=== PATIENT | male | born 1985 | race Caucasian/White ===

== ENCOUNTER → 2017-02-03 | Outpatient (CLI) | payer OTHER | LOC: HEDF 13:26 | DX: S01.01XA Laceration without foreign body of scalp, initial encounter (principal); Y93.55 Activity, bike riding; M79.641 Pain in right hand; V13.9XXA Unspecified pedal cyclist injured in collision with car, pick-up truck or van in traffic accident, initial encounter; Y92.488 Other paved roadways as the place of occurrence of the external cause; Y99.8 Other external cause status | CPT/HCPCS: A0431; A0436 ==

== ENCOUNTER 2017-06-09 03:19 | Emergency (ER) | payer OTHER ==
[~2017-06-09] VITALS: Ht 167.6 cm; Wt 52.0 kg
[2017-06-09 03:25] VITALS: BP 115/83; PULSE 89; RESP 16; TEMP 98.5; O2SAT 97
[2017-06-09 04:01] LABS: AUTOMATED NEUTROPHIL # 6.2 TH/MM3 (1.8-7.7); BASOPHIL # 0.1 TH/MM3 (0-0.2); BASOPHIL % 0.8 % (0.0-2.0); EOSINOPHIL # 0.3 TH/MM3 (0-0.4); EOSINOPHIL % 3.1 % (0.0-4.0); HEMATOCRIT 38.8 % (39.0-51.0); LYMPH % 20.6 % (9.0-44.0); LYMPHOCYTE # 1.9 TH/MM3 (1.0-4.8); MEAN CELL VOLUME 92.8 FL (80.0-100.0); MEAN CORPUSCULAR HEMOGLOBIN 32.3 PG (27.0-34.0); MEAN CORPUSCULAR HGB CONC 34.7 % (32.0-36.0); NEUT % 68.5 % (16.0-70.0); PLATELET COUNT 256 TH/MM3 (150-450); RED BLOOD COUNT 4.17 MIL/MM3 (4.50-5.90); RED CELL DISTRIBUTION WIDTH 15.8 % (11.6-17.2); WHITE BLOOD COUNT 9.1 TH/MM3 (4.0-11.0)
[2017-06-09 04:02] LABS: HEMO FLAGS AUTO DIFF
--- NOTE | 2017-06-09 04:02 | RADRPT ---
EXAM DATE/TIME: 06/09/2017 03:42 [place] COMPARISON: No previous studies available for comparison. INDICATIONS : Chest pain. MEDICAL HISTORY : None. SURGICAL HISTORY : None. ENCOUNTER: Initial ACUITY: 1 day PAIN SCORE: 4/10 LOCATION: chest substernal. FINDINGS: Portable AP view of the chest demonstrates a normal-sized cardiac silhouette. No effusion, consolidat ion, or pneumothorax is visualized. The bones and soft tissues demonstrate no acute abnormality. CONCLUSION: No acute cardiopulmonary abnormality is identified. Allen Cobos MD on June 09, 2017 at 4:00 Board Certified Radiologist. This report was verified electronically.
[2017-06-09 04:24] LABS: ANION GAP 9 MEQ/L (5-15); BICARBONATE 24.8 MEQ/L (21.0-32.0); BLOOD UREA NITROGEN 24 MG/DL (7-18); CHLORIDE 105 MEQ/L (98-107); CREATINE KINASE 125 U/L (39-308); GLOMERULAR FILTRATION RATE 94 ML/MIN (>89); POTASSIUM 4.3 MEQ/L (3.5-5.1); SODIUM (NA) 139 MEQ/L (136-145)
[2017-06-09 04:36] LABS: CKMB 0.7 NG/ML (0.5-3.6)
[2017-06-09 04:49] VITALS: RESP 16; O2SAT 99
[2017-06-09] MEDS ORDERED: BACT800T5 PO (05:38)
--- NOTE | 2017-06-09 05:38 | PD ---
HPI Chief Complaint: Chest Pain Time Seen by Provider: 05:11 Travel History International Travel<30 days: No Contact w/Intl Traveler<30days: No Traveled to known affect area: No History of Present Illness HPI The patient is a 31-year-old male who presents to the emergency department for multiple complaints. The patient complains of bilateral chest wall pain that is worse with inspiration. The patient does note a dry nonproductive cough, denies any shortness of breath with a pleuritic chest pain. The patient also complains of multiple abscesses to the groin, buttocks, and left axilla. The patient states he has a history of abscesses in the past and has been on medication for last 2 weeks, however, cannot recall the name of the medication. The patient denies any fever, chills, or sweats. The patient states he is currently going from [place] to [place], however, ended up in [place], [place]. The patient's symptoms are moderate, exacerbated by history of previous abscesses, and there are no current alleviating factors. The patient denies any history of pulmonary embolism or DVT. PFSH Past Medical History Asthma: Yes Cardiovascular Problems: Yes (ENLARGED HEART) Diminished Hearing: No Medical other: Yes (CHANTE DAMIAN DISEASE) Tetanus Vaccination: Unknown Influenza Vaccination: No Past Surgical History Other Surgery: Yes (MULTIPLE ABSCESS SURGERIES) Social History Alcohol Use: No Tobacco Use: Yes (6-7 PER DAY) Substance Use: No Allergies-Medications (Allergen,Severity, Reaction): Coded Allergies: Ceclor (Verified Allergy, Severe, Anaphylaxis, 06/09/17) Penicillin (Verified Adverse Reaction, Severe, Anaphylaxis, 06/09/17) Reported Meds & Prescriptions Reported Meds & Active Scripts Active Bactrim DS (Sulfamethoxazole-Trimethoprim) 800-160 Mg Tab 1 Tab PO BID Review of Systems General / Constitutional: No: Fever Cardiovascular: Positive: Chest Pain or Discomfort Respiratory: Positive: Cough, Pleuritic Pain, No: Shortness of Breath Gastrointestinal: No: Nausea, Vomiting, Abdominal Pain Skin: Positive Other Physical Exam Narrative GENERAL: Awake, alert, nontoxic-appearing 31-year-old male appears his stated age is in no acute respiratory distress. The patient initially was laying in the left supine position and sleeping. SKIN: Focused skin assessment warm/dry. HEAD: Atraumatic. Normocephalic. EYES: No injection or drainage. ENT: No nasal bleeding or discharge. Mucous membranes pink and moist. NECK: Trachea midline. No JVD. CARDIOVASCULAR: Regular rate and rhythm. No murmur appreciated. Palpation the chest wall does not reproduce symptoms. RESPIRATORY: No accessory muscle use. Clear to auscultation. Breath sounds equal bilaterally. GASTROINTESTINAL: Abdomen soft, non-tender, nondistended. Inspection the right inguinal canal reveals some small lymphadenopathy but no obvious abscess. Back: No obvious abscess to the right gluteal region. Old scars apparent. MUSCULOSKELETAL: Patient has a fluctuant abscess in the left axilla which is tender but no overlying erythema. NEUROLOGICAL: Awake and alert. No obvious cranial nerve deficits. Motor grossly within normal limits. Normal speech. PSYCHIATRIC: Appropriate mood and affect; insight and judgment normal. Data Data Last Documented VS Vital Signs Date Time Temp Pulse Resp B/P Pulse Ox O2 Delivery O2 Flow Rate FiO2 06/09/17 04:49 16 99 Room Air 06/09/17 03:25 98.5 89 115/83 Orders Electrocardiogram (06/09/17 03:29) Complete Blood Count With Diff (06/09/17 03:29) Basic Metabolic Panel (Bmp) (06/09/17 03:29) Ckmb (Isoenzyme) Profile (06/09/17 03:29) Troponin I (06/09/17 03:29) Chest, Single Ap (06/09/17 03:29) Iv Access Insert/Monitor (06/09/17 03:29) Ecg Monitoring (06/09/17 03:29) Oxygen Administration (06/09/17 03:29) Oximetry (06/09/17 03:29) CKMB (06/09/17 03:35) CKMB% (06/09/17 03:35) Acetamin-Hydrocod 325-5 Mg (Asher 5-325 (06/09/17 05:45) Wound Culture And Gram Stain (06/09/17 05:39) Lidocai-Epi 1%-1:100,000 Inj (Xylocaine- (06/09/17 05:45) Labs Laboratory Tests Test 06/09/17 03:35 White Blood Count 9.1 TH/MM3 Red Blood Count 4.17 MIL/MM3 Hemoglobin 13.5 GM/DL Hematocrit 38.8 % Mean Corpuscular Volume 92.8 FL Mean Corpuscular Hemoglobin 32.3 PG Mean Corpuscular Hemoglobin 34.7 % Concent Red Cell Distribution Width 15.8 % Platelet Count 256 TH/MM3 Mean Platelet Volume 8.3 FL Neutrophils (%) (Auto) 68.5 % Lymphocytes (%) (Auto) 20.6 % Monocytes (%) (Auto) 7.0 % Eosinophils (%) (Auto) 3.1 % Basophils (%) (Auto) 0.8 % Neutrophils # (Auto) 6.2 TH/MM3 Lymphocytes # (Auto) 1.9 TH/MM3 Monocytes # (Auto) 0.6 TH/MM3 Eosinophils # (Auto) 0.3 TH/MM3 Basophils # (Auto) 0.1 TH/MM3 CBC Comment AUTO DIFF Sodium Level 139 MEQ/L Potassium Level 4.3 MEQ/L Chloride Level 105 MEQ/L Carbon Dioxide Level 24.8 MEQ/L Anion Gap 9 MEQ/L Blood Urea Nitrogen 24 MG/DL Creatinine 0.95 MG/DL Estimat Glomerular Filtration 94 ML/MIN Rate Random Glucose 93 MG/DL Calcium Level 9.7 MG/DL Total Creatine Kinase 125 U/L Creatine Kinase MB 0.7 NG/ML Troponin I LESS THAN 0.02 NG/ML MDM Medical Decision Making Medical Screen Exam Complete: Yes Emergency Medical Condition: Yes Medical Record Reviewed: Yes Interpretation(s) EKG reveals normal sinus rhythm with a rate of 79. Voltage criteria for LVH. Laboratory Tests Test 06/09/17 03:35 White Blood Count 9.1 TH/MM3 Red Blood Count 4.17 MIL/MM3 Hemoglobin 13.5 GM/DL Hematocrit 38.8 % Mean Corpuscular Volume 92.8 FL Mean Corpuscular Hemoglobin 32.3 PG Mean Corpuscular Hemoglobin 34.7 % Concent Red Cell Distribution Width 15.8 % Platelet Count 256 TH/MM3 Mean Platelet Volume 8.3 FL Neutrophils (%) (Auto) 68.5 % Lymphocytes (%) (Auto) 20.6 % Monocytes (%) (Auto) 7.0 % Eosinophils (%) (Auto) 3.1 % Basophils (%) (Auto) 0.8 % Neutrophils # (Auto) 6.2 TH/MM3 Lymphocytes # (Auto) 1.9 TH/MM3 Monocytes # (Auto) 0.6 TH/MM3 Eosinophils # (Auto) 0.3 TH/MM3 Basophils # (Auto) 0.1 TH/MM3 CBC Comment AUTO DIFF Sodium Level 139 MEQ/L Potassium Level 4.3 MEQ/L Chloride Level 105 MEQ/L Carbon Dioxide Level 24.8 MEQ/L Anion Gap 9 MEQ/L Blood Urea Nitrogen 24 MG/DL Creatinine 0.95 MG/DL Estimat Glomerular Filtration 94 ML/MIN Rate Random Glucose 93 MG/DL Calcium Level 9.7 MG/DL Total Creatine Kinase 125 U/L Creatine Kinase MB 0.7 NG/ML Troponin I LESS THAN 0.02 NG/ML Last Impressions Chest X-Ray 06/09/17 0329 Signed Impressions: Service Date/Time: Friday, June 09, 2017 03:42 - CONCLUSION: No acute cardiopulmonary abnormality is identified. Allen Cobos MD Differential Diagnosis Differential diagnosis includes abscess, hidradenitis suppurative, pleuritic chest pain, or coronary embolism, pneumonia, bronchitis, ACS. Narrative Course The patient had protocol performed in triage EKG, chest x-ray, and laboratory evaluation. EKG is unremarkable except for possible voltage criteria for LVH. Chest x-rays unremarkable, no evidence of pneumonia, pneumothorax, or pleural effusion. The patient's heart rate is normal, the patient's oxygen saturation is normal, I do not believe the patient has a pulmonary embolism. He may have pleuritic chest pain from underlying URI and/or bronchitis. I was going to have the patient's left axilla abscess incised and drained, however, patient refused IND. The patient will be placed on Bactrim. He is advised to follow- up with his primary physician. Diagnosis Primary Impression: Pleuritic chest pain Additional Impression: Abscess of left axilla Patient Instructions: General Instructions Additional Instructions: Please provide a patient a copy of his labs and chest x-ray results at discharge. Follow-up with her primary physician. Bactrim as directed. Return if symptoms worsen or progress. Med/Other Pt SpecificInfo: Prescription(s) given Scripts Sulfamethoxazole-Trimethoprim (Bactrim DS)800-160 Mg Tab1 Tab PO BID #20 TAB Ref 0 Prov:Max Granado MD 06/09/17 Disposition: 01 DISCHARGE HOME Condition: Stable Max Granado MD Jun 09, 2017 05:38
[2017-06-09] MEDS ORDERED: ACETAMINOPHEN/HYDROcodone 325 MG/5 MG TAB PO ONE (05:45)
[2017-06-09] MEDS ORDERED: LIDOCAINE 1%/EPINEPHrine 1:100,000 SOLN 20 ML VIAL INFIL ONE (05:45)
[2017-06-09 06:36] LABS: BANDS 9 % (0-6); EOSINOPHILS 3 % (0-4); NEUTROPHIL # MANUAL DIFF 6.8 TH/MM3 (1.8-7.7); POLYS (SEG NEUTROPHILS) 66 % (16-70); WBC DIFF SAMPLE 100
[2017-06-09 06:37] LABS: PLATELET ESTIMATE SMEAR NORMAL (NORMAL); PLATELET MORPHOLOGY NORMAL (NORMAL); SCAN/DIFF FINAL DIFF MANUAL
[2017-06-09 06:58] VITALS: BP 110/80; PULSE 88; RESP 18; O2SAT 97
--- NOTE | 2017-06-09 20:41 | EKG ---
Date Performed: 06/09/2017 Time Performed: 03:46:06 PTAGE: 31 years EKG: Sinus rhythm VOLTAGE CRITERIA FOR LVH ABNORMAL ECG PREVIOUS TRACING : 03/05/1995 19.33 Compared to prior tracing no significant change DOCTOR: Froy Hernandez Interpretating Date/Time 06/09/2017 20:41:13
== END 2017-06-09 06:58 | disposition home or self-care (01) ==
LOC: NEPC 03:19
DX: R07.89 Other chest pain (principal); L02.412 Cutaneous abscess of left axilla; R05 Cough; R94.31 Abnormal electrocardiogram [ECG] [EKG]; J45.909 Unspecified asthma, uncomplicated; F17.200 Nicotine dependence, unspecified, uncomplicated; Z88.0 Allergy status to penicillin; Z79.2 Long term (current) use of antibiotics
CPT/HCPCS: 71010; 80048; 82550; 82552; 84484; 85007; 85027; 93005; 99285